=== PATIENT | female | born 1950 | race Caucasian/White ===

== ENCOUNTER 2021-05-02 02:04 | Outpatient (CLI) | payer MEDICARE, OTHER, SELFPAY ==
[2021-05-02 10:30] LABS: Source Nasal/Nares
[2021-05-02 13:45] LABS: COVID-19 PCR Negative (Negative)
== END 2021-05-02 02:05 | disposition home or self-care (01) ==
LOC: LBO 02:04
PROVIDERS: PCP Nurse Practitioner; Visit Provider Ophthalmology
DX: Z20.822 Contact with and (suspected) exposure to COVID-19 (principal); Z01.818 Encounter for other preprocedural examination
CPT/HCPCS: 87635

== ENCOUNTER 2021-05-05 06:41 | Day surgery (SDC) | payer MEDICARE, OTHER, SELFPAY ==
[2021-05-05 06:59] VITALS: BP 152/69; PULSE 77; RESP 16; TEMP 36; O2SAT 98
[2021-05-05] MEDS: Tropicam./Phenyleph. (1/2.5%) 5 ML BTL OD ×3 (07:15→07:27)
--- NOTE | 2021-05-05 07:45 | W.ANESPRE ---
General Info Date of Service Date Performed: 05/05/21 Height: 5 ft 7 in Weight: 86.2 kg Body Mass Index (BMI): 29.7 Surgical Procedure: Operation Date: 05/05/21 08:40 Proposed Procedure Side Surgeon p Cataract Extraction with IOL Implant Right Carlos Watts MD Meds Allergies and Home Medications Allergies Allergy/AdvReac Type Severity Reaction Status Date / Time Sulfa (Sulfonamide Allergy Intermediate Skin Rash Unverified 05/05/21 07:06 Antibiotics) sulfamethoxazole Allergy Intermediate Skin Rash Unverified 05/05/21 07:06 [From Bactrim] trimethoprim [From Bactrim] Allergy Intermediate Skin Rash Unverified 05/05/21 07:06 Home Medication Medication Instructions Recorded cholecalciferol (vitamin D3) 125 125 mcg PO DAILY 04/23/21 mcg (5,000 unit) tablet (Vitamin D3) gabapentin 100 mg tablet 200 mg PO HS 04/23/21 ibuprofen 200 mg tablet 200 mg PO Q6H 04/23/21 losartan 100 mg tablet 100 mg PO DAILY 04/23/21 melatonin 3 mg tablet 3 mg PO HS PRN 04/23/21 omeprazole 40 mg capsule,delayed 40 mg PO DAILY 04/23/21 release vitamin A-vitamin C-vit E-min 1 tab PO DAILY 04/23/21 tablet Current Visit Medications: Current Medications Generic Name Dose Route Start Last Admin Trade Name Freq PRN Reason Stop Dose Admin Acetaminophen 1,000 mg 05/05/21 06:00 Acetaminophen 500 Mg Tab PO Q4H PRN PRN Miscellaneous Medication 0 ml 05/05/21 06:00 Prednisolone 1%, Moxifloxacin 0.5%, Nepafenac 0.1% 5ml Btl OD DIRECTED [facility] Miscellaneous Medication 0 ml 05/05/21 06:00 05/05/21 07:27 Tropicam./Phenyleph. (1/2.5%) 5 Ml Btl OD 1 drp DIRECTED [facility] Administration Tetracaine HCl 0 ml 05/05/21 06:00 Tetracaine 0.5% 4 Ml Btl OD DIRECTED [facility] Medical History Medical History Dysphagia GERD (gastroesophageal reflux disease) HTN (hypertension) Plantar fasciitis of left foot Trigger finger of right thumb Trigger finger, right ring finger Medical History Comments:: Pt. stated when she had a colonoscopy in the past she stopped breathing for a short period of time. (Discussed w/ BB ok to go). Surgical History Surgical History History of left cataract surgery Hx of cholecystectomy Hx of LASIK Hx of tubal ligation S/P trigger finger release Tobacco Smoking/Tobacco Use Status: Former Tobacco Use Alcohol Alcohol Intake: current Alcohol intake frequency: holidays/special occasions only Substance Use Substance use: Never Substance use type: does not use Vital Signs and Lab Results Vital Signs Most Recent Vital Signs in EMR: Most Recent Vital Signs Temp Pulse Resp BP Pulse Ox 36.0 C L 77 16 152/69 H 98 05/05/21 06:59 05/05/21 06:59 05/05/21 06:59 05/05/21 06:59 05/05/21 06:59 Lab Results Blood Type / Crossmatch: No Data to Display Complete Blood Count: No Data to Display Complete Metabolic Panel: No Data to Display Liver Function Panel: No Data to Display Coagulation Panel: No Data to Display Cardiac Panel: No Data to Display Arterial Blood Gas: No Data to Display Venous Blood Gas: No Data to Display Pancreas Panel: No Data to Display Thyroid Panel: No Data to Display Infectious Disease: Coronavirus (COVID-19)(PCR) Negative (Negative) 05/02/21 08:47 05/02/21 Coronavirus 2019 Source Nasal/Nares 05/02/21 08:47 05/02/21 Blood Cultures: No Data to Display Toxicology Panel: No Data to Display Anesthesia Assessment and Plan Anesthesia History Personal History: Other Family History: No Family History of Anesthesia Complications Exercise Tolerance Exercise Tolerance: Metabolic Equivalents>4 Pertinent Negatives Pertinent Negatives: No Major Cardiovascular Symptoms or Complaints and No Major Pulmonary Symptoms or Complaints Cardiac & Pulmonary Exam Cardiac Exam: Normal S1/S2 Heart Sounds Pulmonary Exam: Clear Bilateral Breath Sounds Implantable Cardiac Device Does patient have a Pacemaker or an ICD?: No Airway Exam Known Difficult Airway: No Mallampati Class: 2 Mouth Opening: Normal (> 3cm) Thyromental Distance: Greater than 3 cm Neck Range of Motion: Full ROM Neck Circumference: Normal Teeth Condition: Normal Dentition ASA Classification ASA Score: ASA 2 Emergency Case?: No NPO Status NPO Status: NPO Clears >2 hours, Solids >8 hours Anesthesia Plan Resuscitation Status: Full Code Anesthesia Technique: MAC Anesthesia Airway Planned: Natural Airway Monitors Used: Standard Monitors
[2021-05-05 08:08] VITALS: BMI 29.7
[2021-05-05] MEDS: Povidone-Iodine Ophth 30 ML BTL (08:14)
[2021-05-05] MEDS: Tetracaine 0.5% 4 ML BTL OD (08:14)
[2021-05-05] MEDS: Lidocaine 2% Jelly 6 ML SYR (08:15)
[2021-05-05] MEDS: Balanced Salt Soln.-PLUS 500 ML BAG (08:22)
[2021-05-05] MEDS: Duovisc Viscoelastic System EACH 1 EACH (08:22)
--- NOTE | 2021-05-05 08:43 | W.PM.OP ---
Date of service: 05/05/21 Time of Service: 08:44 Operative Note Operative Note DATE OF PROCEDURE: 05/05/21 PRE-OP DIAGNOSIS: Nuclear/posterior subcapsular cataract, right eye Status post corneal refractive surgery many years ago POST-OP DIAGNOSIS: same PROCEDURE: Cataract extraction using phacoemulsification with intraocular lens implant, right eye SURGEON: Carlos Watts ANESTHESIA TYPE: Local By Surgeon and MAC Refer to Anesthesia Record ESTIMATED BLOOD LOSS: 0 PATHOLOGY: none sent COMPLICATIONS: None Patient was transported to: same day Patient's condition: stable Implants: Eran & Eran/KRISH Tecnis [id number] Indications: Progressive visual loss due to cataract, right eye Procedure Description: CATARACT SURGERY OPERATIVE REPORT PREOPERATIVE DIAGNOSIS: 1. Nuclear/posterior subcapsular cataract, right eye 2. Status post corneal refractive surgery, and a years ago POSTOPERATIVE DIAGNOSIS: Same OPERATION: 1. Cataract extraction using phacoemulsification with posterior chamber intraocular lens implant, right eye. IOL: IOL Skip Tracer/Model: Eran & Eran / KRISH Tecnis [id number] IOL Power: + 20.0 diopters IOL Serial Number: [id number] Optic Diameter: 6.0mm Haptic/Overall Diameter: 13.0mm PHACO INFO: Ezequiel Centurion Vision System with OZil and Active Fluidics Cumulative Dispersed Energy (CDE): 6.72 seconds SURGEON: Carlos Watts MD, PADMA ANESTHESIA: Monitored Anesthesia Care (MAC), with local sub-tenon's anesthetic infiltration COMPLICATIONS: None SPECIMENS: None INDICATIONS FOR PROCEDURE: The patient is a 71-year-old lady with history of diminished visual acuity in her right eye secondary to the development of nuclear and posterior subcapsular cataract. She has previously undergone LASIK vision correction many years ago. She has already undergone cataract surgery in the left eye 3 years ago. She now presents for cataract surgery of the right eye. PROCEDURE: The correct surgical eye was identified and marked as the right eye and the pupil was dilated in the preoperative area using mydriatics and cycloplegics. The dilated pupil size was 6.0 mm. She elected to proceed without oral sedation. The patient was brought to the operating room where cardiopulmonary monitoring was instituted and surgical time-out was performed, confirming the correct operative eye and IOL power. Topical anesthesia was administered and ophthalmic povidone-iodine 5% was instilled into the conjunctival fornices. Lidocaine gel was applied to the cornea and the erick-ocular area was prepped with Betadine 10% solution and draped in the usual sterile fashion for intraocular surgery, including an aperture drape. A Tegaderm transparent film dressing was cut in half and used to cover the lashes and lid margins. Care was taken to sequester the lashes and lid margins under the Tegaderm dressing. A lid speculum was placed between the lids of the operative eye and the Ezequiel LuxOR Revalia operating microscope was maneuvered into position. Ja scissors were then used to make a conjunctival buttonhole approximately 6mm posterior to the limbus in the inferonasal quadrant. Blunt dissection was carried out to expose bare sclera, and a blunt-tipped sub-tenon?s anesthesia cannula was introduced and passed posteriorly along the globe where non-preserved plain lidocaine was injected into posterior sub-Tenon?s space. A sideport knife was used to make a paracentesis port inferotemporally. Intraocular phenylephrine/lidocaine was injected into the anterior chamber. The anterior chamber was filled with viscoelastic. A 2.4mm keratome knife was used to create a half-thickness groove at the limbus and then to construct a three-plane near-clear corneal tunnel extending 2.0mm into clear cornea superiortemporally. A flap was raised on the anterior capsule and capsulorhexis forceps were used to complete a continuous curvilinear capsulorhexis of 5.0 mm. Balanced salt solution was then used to perform cortical cleaving hydrodissection and nuclear hydrodelineation until the lens could be freely rotated within the capsular bag. The lens nucleus was then disassembled and removed within the capsular bag and iris plane using phacoemulsification. Residual cortical material was removed using the I/A handpiece. The posterior capsule was carefully polished to remove as much residual lens epithelial cells as safely possible. The capsular bag was then inflated and the anterior chamber deepened with viscoelastic. The lens implant described above was inserted into the capsular bag using the KRISH Williams Injector. A Kuglen hook was used to dial the IOL into position. Residual viscoelastic was then removed first from posterior to the IOL, then from the anterior chamber using the I/A handpiece. The lens implant was noted to center nicely within the capsular bag. The incisions were stromally hydrated, and the anterior chamber was reformed using BSS. Then 0.5cc of moxifloxacin 1.0mg/ml were injected into the capsular bag and anterior chamber. The incisions were checked with a Weck spear and found to be secure. Several drops of ophthalmic povidone-iodine 5% were then applied to the eye followed by two drops of Imprimis combination prednisolone/moxifloxacin/nepafenac solution. The drapes were removed and a clear plastic protective eye shield was placed over the eye. The patient was then returned to [facility] in stable condition.
--- NOTE | 2021-05-05 08:43 | W.PM.DSUDISC ---
Discharge Plan Disposition Patient Disposition: HOME Condition: Good Discharge Details Attending Provider: Carlos Watts Primary Care Provider: Elly Le Home Meds and New Rx's Prescriptions: No Action melatonin 3 mg Tablet 3 mg PO HS PRN0RF omeprazole 40 mg Capsule,Delayed Release(Dr/Ec) 40 mg PO DAILY 0RF ibuprofen 200 mg Tablet 200 mg PO Q6H 0RF losartan 100 mg Tablet 100 mg PO DAILY 0RF Ocuvite Tablet 1 tab PO DAILY 0RF gabapentin 100 mg Tablet 200 mg PO HS 0RF cholecalciferol (vitamin D3) [Vitamin D3] 125 mcg (5,000 unit) Tablet 125 mcg PO DAILY 0RF Discharge Instructions Stand Alone Forms: Post-op Topical Cataract, Homero Kwok (DSU) Discharge Orders Discharge Orders: Discharge Order (Routine); Ordered 05/05/21 Ordered By: Carlos Watts DS: Diagnosis Discharge Diagnosis (1) Nuclear sclerotic cataract of right eye: Status: Resolved (2) Posterior subcapsular age-related cataract, right eye: Status: Resolved
[2021-05-05 08:47] VITALS: BP 134/70; PULSE 72; RESP 16; TEMP 36.5; O2SAT 98
--- NOTE | 2021-05-05 09:08 | W.ANESPOSTOP ---
Postoperative Evaluation Date, Time and Location Date Performed: 05/05/21 Time Performed: 08:50 Patient Location: Day Surgery Unit Vital Signs Most Recent Imported Vital Signs: Most Recent Vital Signs Temp Pulse Resp BP Pulse Ox 36.5 C 72 16 134/70 98 05/05/21 08:47 05/05/21 08:47 05/05/21 08:47 05/05/21 08:47 05/05/21 08:47 Pain Score Most Recent Pain Score: Most Recent Pain Score Pain Level 0 05/05/21 08:47 Assessment Mental Status: Awake (Alert & Oriented to Patient Baseline) Airway and Respiratory Function: Patent airway with normal (patient baseline) respiratory exam Cardiovascular Function: Hemodynamically Stable Hydration Status: Adequately Hydrated Nausea & Vomiting: No Nausea or Vomiting Pain: Pt. Denies Any Pain Peripheral Nerve Block: Patient did not receive a nerve block
== END 2021-05-05 09:05 | disposition home or self-care (01) ==
PROVIDERS: PCP Nurse Practitioner; Visit Provider Ophthalmology
PROC: (CPT 66984; principal; 2021-05-05 08:30)
DX: H25.041 Posterior subcapsular polar age-related cataract, right eye (principal); I10 Essential (primary) hypertension; K21.9 Gastro-esophageal reflux disease without esophagitis
CPT/HCPCS: 66984; V2632